=== PATIENT | male | born 1970 | race Caucasian/White ===

== ENCOUNTER → 2018-12-29 | Outpatient (CLI) | payer BC ==
--- NOTE | 2018-12-29 12:46 | Diagnostic Imaging Report ---
MRI SPINE LUMBAR WO HISTORY: Back spasm, low back pain, leg pain COMPARISON: None. TECHNIQUE: Sagittal T1, sagittal T2, sagittal STIR, axial T2, coronal T2, and axial proton density weighted images of the lumbar spine were obtained without contrast. DISCUSSION: Number of non-rib bearing lumbar vertebral bodies: 5. Alignment: Normal lordosis. No scoliosis. Vertebrae: Small nodular T1 hyperintense lesion in the L3 vertebral body is a benign hemangioma. Otherwise, no fractures, infection or neoplasm. Conus medullaris: Normal, ends at L1. Cauda equina: No masses or arachnoiditis. Posterior paraspinal muscles: Well preserved. Posterior incision signal changes are present. 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 Mild multilevel disc degeneration is most prominent at L5-S1. T12-L1: Patent canal and foramina. L1-L2: Patent canal and foramina. L2-L3: Disc bulge without significant canal or foraminal stenosis. L3-L4: Mild canal stenosis due to disc bulge and ligamentum flavum thickening. Mild left foraminal stenosis due to disc bulge and facet arthrosis. No significant right foraminal stenosis. L4-L5: Laminectomy changes without significant central canal stenosis. Mild left foraminal stenosis due to disc bulge and facet arthrosis. No significant right foraminal stenosis. L5-S1: Grade 1 anterolisthesis of L5 on S1 due to chronic bilateral L5 pars defects. Laminectomy changes without significant central canal stenosis. Moderate right and mild to moderate left foraminal stenoses due to uncovered disc bulge and facet slippage. IMPRESSION: 1. Mild multilevel disc degeneration, most prominent at L5-S1. 2. Grade 1 anterolisthesis of L5 on S1 due to chronic bilateral L5 pars defects. 3. Laminectomy changes at L4-L5 and L5-S1. 4. Multilevel degenerative foraminal stenoses - moderate right and mild to moderate left at L5-S1. 5. Mild degenerative canal stenosis at L3-L4. Signed by: Dr. Judd Montgomery M.D. on 12/29/2018 12:43 PM
== END ==
LOC: MRI 11:16
PROVIDERS: ATTEND Anesthesiology Pain Medicine
DX: M96.1 Postlaminectomy syndrome, not elsewhere classified (principal); M62.830 Muscle spasm of back; F11.99 Opioid use, unspecified with unspecified opioid-induced disorder
CPT/HCPCS: 72148